=== PATIENT | female | born 1980 | race Asian ===

== ENCOUNTER 2018-06-16 13:23 | Outpatient (CLI) | payer OTHER | END 2018-06-16 13:26 | disposition short-term general hospital (02) | LOC: AMB 13:23 | DX: S81.812A Laceration without foreign body, left lower leg, initial encounter (principal); W54.0XXA Bitten by dog, initial encounter; Y93.89 Activity, other specified; Y92.89 Other specified places as the place of occurrence of the external cause | CPT/HCPCS: A0425; A0427 ==

== ENCOUNTER 2018-06-16 13:26 | Emergency (ER) | payer OTHER ==
[~2018-06-16] VITALS: Ht 152.4 cm; Wt 59.0 kg
[2018-06-16 13:26] VITALS: TEMP 99
[2018-06-16 14:00] LABS: PLATELET COUNT 243 K/uL (152-353)
[2018-06-16 14:17] VITALS: BP 160/82
== END 2018-06-16 14:30 | disposition home or self-care (01) ==
LOC: ED 13:26
DX: S81.852A Open bite, left lower leg, initial encounter (principal); W54.0XXA Bitten by dog, initial encounter
CPT/HCPCS: 85027; 90471; 90715; 99283

== ENCOUNTER 2019-03-10 22:45 | Emergency (ER) | payer OTHER ==
[~2019-03-10] VITALS: Ht 152.4 cm; Wt 59.0 kg
[2019-03-10 23:07] VITALS: BP 120/85; TEMP 98.8
[2019-03-11 00:06] LABS: PLATELET COUNT 195 K/uL (152-353)
[2019-03-11 00:19] LABS: SODIUM 138 mmol/L (136-145)
== END 2019-03-11 02:44 | disposition home or self-care (01) ==
LOC: ED 22:45
PROVIDERS: Student in an Organized Health Care Education/Training Program
DX: R79.89 Other specified abnormal findings of blood chemistry (principal); F19.10 Other psychoactive substance abuse, uncomplicated
CPT/HCPCS: 80053; 80307; 80320; 80329; 81000; 82550; 82553; 83735; 84484; 85027; 93005; 96360; 96361; 96375; 99284; J2060